=== PATIENT | male | born 1960 | race Caucasian/White ===

== ENCOUNTER 2021-05-01 15:34 | Emergency (ER) | payer SELFPAY ==
[~2021-05-01] VITALS: Ht 177.8 cm; Wt 109.0 kg
--- NOTE | 2021-05-01 15:50 | PHYS DOC ---
General Adult EDM: Chief Complaint: HYPOGLYCEMIA HPI: HPI: Patient is a 61-year-old male who presents with hypoglycemia. Patient states "I was walking on the street when I sat down on the side of the road". "I guess somebody called EMS". EMS states blood sugar was 52 on arrival. Patient is alert and oriented on arrival. Patient states he currently takes Metformin. Patient denies injury. (CHRISTAL LAWRENCE APRN) Review of Systems: Review of Systems: ROS At least 10 ROS systems have been reviewed and are negative except as documented in the HPI. General: Negative except as outlined in HPI above. Skin: Negative except as outlined in HPI above. HEENT: Negative except as outlined in HPI above. Neck: Negative except as outlined in HPI above. Respiratory: Negative except as outlined in HPI above.. Cardiovascular: Negative except as outlined in HPI above. Abdomen: Negative except as outlined in HPI above. : Negative except as outlined in HPI above. Back/MSK: Negative except as outlined in HPI above. Neuro: Negative except as outlined in HPI above. Psych: Negative except as outlined in HPI above. (CHRISTAL LAWRENCE APRN) Physical Exam: PE: Constitutional: Well developed, well nourished, no acute distress, non-toxic appearance. [] HENT: Normocephalic, atraumatic, bilateral external ears normal, oropharynx moist, no oral exudates, nose normal. [] Eyes: PERRLA, EOMI, conjunctiva normal, no discharge. [] Neck: Normal range of motion, no tenderness, supple, no stridor. [] Cardiovascular:Heart rate regular rhythm, no murmur [] Lungs & Thorax: Bilateral breath sounds clear to auscultation [] Abdomen: Bowel sounds normal, soft, no tenderness, no masses, no pulsatile masses. [] Skin: Warm, dry, no erythema, no rash. [] Back: No tenderness, no CVA tenderness. [] Extremities: No tenderness, no cyanosis, no clubbing, ROM intact, no edema. [] Neurologic: Alert and oriented X 3, normal motor function, normal sensory function, no focal deficits noted. [] Psychologic: Affect normal, judgement normal, mood normal. [] (CHRISTAL LAWRENCE APRN) EKG: EKG: [] (LAWRENCE,CHRISTAL IT TRAINEE) Radiology/Procedures: Radiology/Procedures: []STUDY: CT head and cervical spine without contrast INDICATION: Confusion. COMPARISON: None. TECHNIQUE: Axial CT imaging through the head and cervical spine without the use of intravenous contrast. Sagittal and coronal reformats were obtained. One or more of the following individualized dose reduction techniques were utilized for this examination: 1. Automated exposure control 2. Adjustment of the mA and/or kV according to patient size 3. Use of iterative reconstruction technique. FINDINGS: CT head: No acute intracranial hemorrhage. Quinones-white matter differentiation is maintained. No mass effect, midline shift or hydrocephalus. Intracranial calcific atherosclerosis involving both the internal carotid arteries and vertebral arteries. Normally aerated paranasal sinuses and mastoid air cells. Partially imaged odontogenic disease of the residual maxillary teeth. Intact calvarium. CT cervical spine: No acute cervical spine fracture or traumatic malalignment. Discogenic arthrosis greatest at C6-C7. Multilevel uncovertebral joint hypertrophy and varying extent of facet arthrosis ranging from mild to advanced. Disc osteophyte complex formation largest at C6-C7. No evidence for severe narrowing of the central canal. Mostly mild to moderate osseous narrowing of the neural foramina. Lytic defect with partially sclerotic margins involving a portion of the left occipital condyle. Heterogeneous mineralization within the defect. No large associated soft tissue mass with only some ill-defined soft tissue density extending anterior to the defect, image 23 series 4.. There may be the sequela of partial glossectomy. No lymph node is identified throughout the neck that meets pathologic criteria based on size. No significant abnormality of the thyroid. Carotid calcific atherosclerosis. IMPRESSION: CT head: 1. No acute intracranial hemorrhage or CT evidence for an acute cortical infarction. 2. Relatively extensive intracranial calcific atherosclerosis. There is also odontogenic disease involving the residual maxillary teeth. CT cervical spine: 1. No acute fracture or traumatic malalignment. 2. Lytic defect with partially sclerotic margins and a component of mineralization involving a portion of the left occipital condyle. There appears to be the sequela of partial glossectomy and it is possible that this represents a metastasis though an additional consideration would be a glomus jugulare paraganglioma. Recommend correlation with patient history, any outside imaging if available and skull base MRI if this is a new or previously uncharacterized finding. 3. Multifactorial degenerative changes of the cervical spine without evidence for severe narrowing of the central canal. Electronically signed by: CORAL REDMAN MD (05/01/2021 4:35 PM) [id number] * Study: XR CHEST 1V Indication: Dizziness. Comparison: None. Findings: Upper limits of normal size of the cardiomediastinal silhouette but accentuated by AP technique. The sussy are within normal limits. No lobar consolidation. Mild reticular densities bilaterally and likely component of left lower lung atelectasis. No layering effusion or pneumothorax. Impression: Faint bilateral reticular densities favored a combination of chronic lung changes and atelectasis. No confluent infiltrate to indicate pneumonia or radiographic manifestations of overt CHF/volume overload. Electronically signed by: CORAL REDMAN MD (05/01/2021 5:23 PM) [id number] (CHRISTAL LAWRENCE APRN) Heart Score: C/O Chest Pain: No Risk Factors: Risk Factors: DM, Current or recent (<one month) smoker, HTN, HLP, family history of CAD, obesity. Risk Scores: Score 0 - 3: 2.5% MACE over next 6 weeks - Discharge Home Score 4 - 6: 20.3% MACE over next 6 weeks - Admit for Clinical Observation Score 7 - 10: 72.7% MACE over next 6 weeks - Early Invasive Strategies (CHRISTAL LAWRENCE APRN) Course & Med Decision Making: Course & Med Decision Making Pertinent Labs and Imaging studies reviewed. (See chart for details) [] 59-year-old male who presents with hyperglycemia. Patient was given orange juice and a meal tray on arrival. Patient's blood sugar on arrival was 72. Patient states he is prediabetic and takes Metformin. Patient reports walking down the street and then sitting down once he got confused. EMS reported that his blood sugar was 52 on arrival. No injuries noted. Patient denies pain and has no complaints. Patient is alert and oriented and hemodynamically stable. After patient ate. Vitals were reassessed and blood pressure was 90/50. Patient informed RN he felt dizzy. EKG showed sinus rhythm, heart rate 95 bpm. Patient was given a liter bolus normal saline. CT head and cervical spine ordered to rule out intracranial bleeding or fracture. CT head and cervical spine negative for acute abnormality. All labs are unremarkable. Patient symptoms have improved after receiving fluids and eating. Advised patient to follow-up with PCP on Monday. Patient reports he understands discharge instructions. Patient given strict return precautions. Patient is alert and oriented, able to ambulate on his own and patient is hemod ynamically stable upon disposition. (CHRISTAL LAWRENCE APRN) Dragon Disclaimer: Dragon Disclaimer: This electronic medical record was generated, in whole or in part, using a voice recognition dictation system. (CHRISTAL LAWRENCE APRN) Attending Co-Sign The patient was seen and interviewed as well as examined at the bedside. The chart was reviewed. The case was discussed. Agree with the plan of care. (POONAM WYNNE DO) Departure Departure: Impression: Primary Impression: Hypoglycemia Additional Impression: Dizziness Disposition: 01 HOME / SELF CARE / HOMELESS Condition: STABLE Patient Instructions: Hypoglycemia (Low Blood Sugar) Additional Instructions: You are brought in by EMS for hypoglycemia. All your labs are unremarkable. You were given fluids along with a meal tray to help with dizziness and blood sugar. You need to call your PCP on Monday make a follow-up appointment. I am sending you with a copy of your CT results as well. Radiology suggested to have repeat imaging completed. EMERGENCY DEPARTMENT GENERAL DISCHARGE INSTRUCTIONS Thank you for coming to [facility] (ED) today and trusting us with you care. We trust that you had a positivie experience in our Emergency Department. If you wish to speak to the department management, you may call the director at [phone]. YOUR FOLLOW UP INSTRUCTIONS ARE FOLLOWS: 1. Do you have a private Doctor? If you do not have a private doctor, please ask for a resource list of physicians or clinics that may be able to assist you with follow up care. 2. The Emergency Physician has interpreted your x-rays. The X-Ray specialist will also review them. If there is a change in the findings, you will be notified in 48 hours when at all possible. 3. A lab test or culture has been done, your results will be reviewed and you will be notified if you need a change in treatment. ADDITIONAL INSTRUCTIONS AND INFORMATION: 1. Your care today has been supervised by a physician who is specially trained in emergency care. Many problems require more than one evaluation for a complete diagnosis and treatment. We recommend that you schedule your follow up appointment as recommended to ensure complete treatment of you illness or injury. If you are unable to obtain follow up care and continue to have a problem, or if your condition worsens, we recommend that you return to the ED. 2. We are not able to safely determine your condition over the phone nor are we able to give sound medical advice over the phone. For these safety reasons, if you call for medical advice we will ask you to come to the ED for further evaluation. 3. If you have any questions regarding these discharge instructions please call the ED at [phone]. SAFETY INFORMATION: In the interest of safety, wellness, and injury prevention; we encourage you to wear your sealbelt, if you smoke; quite smoking, and we encourage family to use a protective helmet for bicycling and other sporting events that present an increased risk for head injury. IF YOUR SYMPTOMS WORSEN OR NEW SYMPTOMS DEVELOP, OR YOU HAVE CONCERNS ABOUT YOUR CONDITION; OR IF YOUR CONDITION WORSENS WHILE YOU ARE WAITING FOR YOUR FOLLOW UP APPOINTMENT; EITHER CONTACT YOUR PRIMARY CARE DOCTOR, THE PHYSICIAN WHOSE NAME AND NUMBER YOU WERE GIVEN, OR RETURN TO THE ED IMMEDIATELY. CHRISTAL LAWRENCE APRN May 01, 2021 15:50 POONAM WYNNE DO May 03, 2021 06:32
[2021-05-01] MEDS: IV NORMAL SALINE 1,000ML 1,000 ML IV ONE (16:30)
--- NOTE | 2021-05-01 16:38 | RAD ---
STUDY: CT head and cervical spine without contrast INDICATION: Confusion. COMPARISON: None. TECHNIQUE: Axial CT imaging through the head and cervical spine without the use of intravenous contra st. Sagittal and coronal reformats were obtained. One or more of the following individualized dose reduction techniques were utilized for this examinat ion: 1. Automated exposure control 2. Adjustment of the mA and/or kV according to patient size 3. Use of iterative reconstruction technique. FINDINGS: CT head: No acute intracranial hemorrhage. Quinones-white matter differentiation is maintained. No mass effect, mi dline shift or hydrocephalus. Intracranial calcific atherosclerosis involving both the internal carotid arteries and vertebral [place]. Normally aerated paranasal sinuses and mastoid air cells. Partially imaged odontogenic disease of the residual maxillary teeth. Intact calvarium. CT cervical spine: No acute cervical spine fracture or traumatic malalignment. Discogenic arthrosis greatest at C6-C7. M ultilevel uncovertebral joint hypertrophy and varying extent of facet arthrosis ranging from mild to advanced. Disc osteophyte complex formation largest at C6-C7. No evidence for severe narrowing of the central canal. Mostly mild to moderate osseous narrowing of the neural foramina. Lytic defect with partially sclerotic margins involving a portion of the left occipital condyle. Hete rogeneous mineralization within the defect. No large associated soft tissue mass with only some ill-d efined soft tissue density extending anterior to the defect, image 23 series 4.. There may be the seq uela of partial glossectomy. No lymph node is identified throughout the neck that meets pathologic cr iteria based on size. No significant abnormality of the thyroid. Carotid calcific atherosclerosis. IMPRESSION: CT head: 1. No acute intracranial hemorrhage or CT evidence for an acute cortical infarction. 2. Relatively extensive intracranial calcific atherosclerosis. There is also odontogenic disease inv olving the residual maxillary teeth. CT cervical spine: 1. No acute fracture or traumatic malalignment. 2. Lytic defect with partially sclerotic margins and a component of mineralization involving a porti on of the left occipital condyle. There appears to be the sequela of partial glossectomy and it is po ssible that this represents a metastasis though an additional consideration would be a glomus jugular e paraganglioma. Recommend correlation with patient history, any outside imaging if available and [facility] base MRI if this is a new or previously uncharacterized finding. 3. Multifactorial degenerative changes of the cervical spine without evidence for severe narrowing o f the central canal. Electronically signed by: CORAL REDMAN MD (05/01/2021 4:35 PM) [id number]
[2021-05-01 17:18] LABS: BASO % 0 % (0-3); EOS # 0.1 x10^3/uL (0.0-0.7); EOS % 2 % (0-3); HEMATOCRIT 41.8 % (39.0-53.0); LYMPH # 1.7 x10^3/uL (1.0-4.8); LYMPH % 20 % (24-48); MEAN CORPUSCULAR HEMOGLOBIN 31 pg (25-35); MEAN CORPUSCULAR HGB CONC 33 g/dL (31-37); MEAN CORPUSCULAR VOLUME 94 fL (79-100); MONO % 12 % (0-9); NEUT # 5.5 x10^3uL (1.8-7.7); NEUT % 66 % (31-73); PLATELET COUNT 238 x10^3/uL (140-400); RED BLOOD COUNT 4.44 x10^6/uL (4.30-5.70); RED CELL DISTRIBUTION WIDTH 14.9 % (11.5-14.5); WHITE BLOOD COUNT 8.3 x10^3/uL (4.0-11.0)
--- NOTE | 2021-05-01 17:26 | RAD ---
Study: XR CHEST 1V Indication: Dizziness. Comparison: None. Findings: Upper limits of normal size of the cardiomediastinal silhouette but accentuated by AP technique. The sussy are within normal limits. No lobar consolidation. Mild reticular densities bilaterally and likel y component of left lower lung atelectasis. No layering effusion or pneumothorax. Impression: Faint bilateral reticular densities favored a combination of chronic lung changes and atelectasis. No confluent infiltrate to indicate pneumonia or radiographic manifestations of overt CHF/volume overlo ad. Electronically signed by: CORAL REDMAN MD (05/01/2021 5:23 PM) [id number]
[2021-05-01 17:27] LABS: CALCIUM 9.3 mg/dL (8.5-10.1); GFR 75.7; POTASSIUM 4.7 mmol/L (3.5-5.1)
[2021-05-01 17:56] VITALS: BP 108/63
--- NOTE | 2021-05-01 19:51 | EKG ---
[address] [address] Test Date: 2021-05-01 Test Time: 16:33:09 Pat Name: MAGAN MARCUS Department: Room: Gender: M [employer]: : [id number] Requested By: CHRISTAL LAWRENCE Order Number: [id number] Reading MD: Enrrique Marcelo Measurements Intervals [place] Rate: 95 P: 28 MT: 140 QRS: 52 QRSD: 84 T: 73 QT: 334 QTc: 423 Interpretive Statements SINUS RHYTHM NORMAL ECG RI6.02 No previous ECG available for comparison Electronically Signed On 05-06-2021 12:51:18 CDT by Enrrique Marcelo
== END 2021-05-01 18:00 | disposition home or self-care (01) ==
LOC: ER 15:34
DX: E16.2 Hypoglycemia, unspecified (principal); R42 Dizziness and giddiness
CPT/HCPCS: 36415; 70450; 71045; 72125; 80048; 82947; 84484; 85025; 93005; 96360; 99285; J7030

== ENCOUNTER 2021-08-12 12:01 | Emergency (ER) | payer OTHER ==
[~2021-08-12] VITALS: Ht 175.3 cm; Wt 108.6 kg
--- NOTE | 2021-08-12 12:26 | RAD ---
EXAM: Chest, single view. HISTORY: Covid 19. COMPARISON: 05/01/2021 FINDINGS: And frontal view of the chest is obtained. There is diffuse lower lobe predominant intersti tial infiltrate with small pleural effusions. There is mild cardia megaly. There is no pneumothorax. IMPRESSION: Increase in diffuse lower lobe predominant interstitial infiltrate and small pleural effu sions. Electronically signed by: Dennise Díaz MD (08/12/2021 12:23 PM) [id number]
[2021-08-12] MEDS ORDERED: ENOXAPARIN ** NOTE DOSE ** SYRINGE SQ ONE (13:45)
[2021-08-12] MEDS ORDERED: DEXAMETHASONE SOD PHOS 10 MG/ML VIAL. IV ONE (13:45)
--- NOTE | 2021-08-12 14:02 | PHYS DOC ---
Past History Additional Past Medical Histor: TBI Past Surgical History: Other Additional Past Surgical Histo: ABD HERNIA REPAIRS Alcohol Use: Occasionally General Adult EDM: Chief Complaint: SHORTNESS OF BREATH HPI: HPI: 61-year-old male presents via EMS with shortness of breath. Patient had a home COVID test 10 days ago that was positive. He has been feeling little more short of breath and worse overall in the last few days. He has never been on oxygen in the past. No significant lung history. He denies fever or chills. Review of Systems: Review of Systems: Constitutional: Denies fever or chills Eyes: Denies change in visual acuity HENT: Denies nasal congestion or sore throat Respiratory: Cough with shortness of breath Cardiovascular: Denies chest pain or edema GI: Denies abdominal pain, nausea, vomiting, bloody stools or diarrhea : Denies dysuria Musculoskeletal: Denies back pain or joint pain Integument: Denies rash Neurologic: Denies headache, focal weakness or sensory changes Endocrine: Denies polyuria or polydipsia Lymphatic: Denies swollen glands Psychiatric: Denies depression or anxiety Current Medications: Current Meds: Current Medications Medications (Trade) Dose Ordered Sig/Garima Start Time Stop Time Status Last Admin Dose Admin Dexamethasone Sodium Phosphate (Decadron) 10 mg 1X ONCE 08/12/21 13:45 08/12/21 13:46 DC Enoxaparin Sodium (Lovenox 100mg Syringe) 100 mg 1X ONCE 08/12/21 13:45 08/12/21 13:46 DC Allergies: Allergies: Allergies Coded Allergies Type Severity Reaction Last Updated Verified codeine Allergy Unknown 08/12/21 Yes Physical Exam: PE: Constitutional: Well developed, well nourished, mild acute distress, non-toxic appearance. [] HENT: Normocephalic, atraumatic, bilateral external ears normal, oropharynx moist, no oral exudates, nose normal. [] Eyes: PERRLA, EOMI, conjunctiva normal, no discharge. [] Neck: Normal range of motion, no tenderness, supple, no stridor. [] Cardiovascular: Heart rate 120, regular rhythm, no murmur [] Lungs & Thorax: Bilateral breath sounds significantly diminished [] Abdomen: Bowel sounds normal, soft, no tenderness, no masses, no pulsatile masses. [] Skin: Warm, dry, no erythema, no rash. [] Back: No tenderness, no CVA tenderness. [] Extremities: No tenderness, no cyanosis, no clubbing, ROM intact, no edema. [] Neurologic: Alert and oriented X 3, normal motor function, normal sensory function, no focal deficits noted. [] Psychologic: Affect normal, judgement normal, mood normal. [] Current Patient Data: Vital Signs: Vital Signs Date Time Temp Pulse Resp B/P (MAP) Pulse Ox O2 Delivery O2 Flow Rate FiO2 08/12/21 13:25 114 23 100/37 (58) 91 High Flow Nasal Cannula 10.0 08/12/21 13:01 98.2 EKG: EKG: [] Radiology/Procedures: Radiology/Procedures: [] Impressions: ADDENDUM #1 Addendum: Gallstones are apparent within the gallbladder. No gallbladder wall thickening or distention is seen. Electronically signed by: Fernanda Arambula MD (08/12/2021 3:44 PM) [id number] ORIGINAL REPORT CTA OF THE CHEST WITH AND WITHOUT CONTRAST Clinical indications: Shortness of breath. Covid positive. Technique: Noncontrast axial localizer was performed. After IV infusion of 75 cc of Omnipaque 350, helical CT scanning of the chest was performed using the CTA pulmonary embolism protocol. Coronal and sagittal MIP reconstructions were generated. PQRS compliance Statement One or more of the following individualized dose reduction techniques were utilized for this study: 1. Automated exposure control 2. Adjustment of the mA and/or kV according to patient size 3. Use of iterative reconstruction technique Comparison: No previous chest CT available. Findings: No pulmonary embolism is evident. No focal aneurysmal dilatation or dissection of thoracic aorta is seen. Reactive mediastinal and bilateral hilar lymphadenopathy is seen. Calcified atheromatous disease of the coronary arteries is seen. Heart size is normal excluding the pericardial fat. No pericardial effusion is seen. Diffuse confluent groundglass lung infiltrates are seen with a more peripheral location. There are associated air bronchograms. Proximal bronchial tree is patent. No adrenal mass is evident. No lytic process is seen. IMPRESSION: No pulmonary embolism. Diffuse confluent bilateral groundglass lung infiltrates are seen with a more peripheral location. This may be seen with Covid 19 pneumonia given the patient's history. Electronically signed by: Fernanda Arambula MD (08/12/2021 3:07 PM) [id number] DICTATED AND SIGNED BY: FERNANDA ARAMBULA MD DATE: 08/12/21 1543 CC: POONAM WYNNE DO; [facility] ~ CTA OF THE CHEST WITH AND WITHOUT CONTRAST Clinical indications: Shortness of breath. Covid positive. Technique: Noncontrast axial localizer was performed. After IV infusion of 75 cc of Omnipaque 350, helical CT scanning of the chest was performed using the CTA pulmonary embolism protocol. Coronal and sagittal MIP reconstructions were generated. PQRS compliance Statement One or more of the following individualized dose reduction techniques were utilized for this study: 1. Automated exposure control 2. Adjustment of the mA and/or kV according to patient size 3. Use of iterative reconstruction technique Comparison: No previous chest CT available. Findings: No pulmonary embolism is evident. No focal aneurysmal dilatation or dissection of thoracic aorta is seen. Reactive mediastinal and bilateral hilar lymphadenopathy is seen. Calcified atheromatous disease of the coronary arteries is seen. Heart size is normal excluding the pericardial fat. No pericardial effusion is seen. Diffuse confluent groundglass lung infiltrates are seen with a more peripheral location. There are associated air bronchograms. Proximal bronchial tree is patent. No adrenal mass is evident. No lytic process is seen. IMPRESSION: No pulmonary embolism. Diffuse confluent bilateral groundglass lung infiltrates are seen with a more peripheral location. This may be seen with Covid 19 pneumonia given the patient's history. Electronically signed by: Fernanda Arambula MD (08/12/2021 3:07 PM) [id number] DICTATED AND SIGNED BY: FERNANDA ARAMBULA MD DATE: 08/12/21 1458 CC: POONAM WYNNE DO; [facility] ~MTH0 0 Heart Score: C/O Chest Pain: N/A Risk Factors: Risk Factors: DM, Current or recent (<one month) smoker, HTN, HLP, family history of CAD, obesity. Risk Scores: Score 0 - 3: 2.5% MACE over next 6 weeks - Discharge Home Score 4 - 6: 20.3% MACE over next 6 weeks - Admit for Clinical Observation Score 7 - 10: 72.7% MACE over next 6 weeks - Early Invasive Strategies Course & Med Decision Making: Course & Med Decision Making Pertinent Labs and Imaging studies reviewed. (See chart for details) The patient has an elevated white count. He has multiple abnormal labs. See labs for more details. Elevated lactic acid and we will give the patient fluids. He has COVID-19. His CTA does not show pulmonary embolus but does show bilateral COVID-pneumonia. I will treat him with Rocephin, azithromycin, and Decadron. The patient is requiring oxygen therapy. He has never been on oxygen in the past. I will admit him to the hospital. I spoke with the hospitalist, Dr. Gaming and he has accepted the patient for admission. [] Dragon Disclaimer: Dragon Disclaimer: This electronic medical record was generated, in whole or in part, using a voice recognition dictation system. Departure Departure: Impression: Primary Impression: Pneumonia due to COVID-19 virus Disposition: ADMITTED INPATIENT Admitting Physician: Yazan Gaming Condition: GUARDED Referrals: AIDE DUMONT (PCP) POONAM WYNNE DO Aug 12, 2021 14:02
[2021-08-12 14:03] LABS: BASO % 0 % (0-3); EOS % 0 % (0-3); HEMATOCRIT 40.7 % (39.0-53.0); HEMOGLOBIN 13.3 g/dL (13.0-17.5); LYMPH # 0.7 x10^3/uL (1.0-4.8); LYMPH % 3 % (24-48); MEAN CORPUSCULAR HEMOGLOBIN 30 pg (25-35); MEAN CORPUSCULAR HGB CONC 33 g/dL (31-37); MEAN CORPUSCULAR VOLUME 92 fL (79-100); MONO # 0.5 x10^3/uL (0.0-1.1); MONO % 2 % (0-9); NEUT # 20.3 x10^3uL (1.8-7.7); NEUT % 94 % (31-73); PLATELET COUNT 203 x10^3/uL (140-400); RED BLOOD COUNT 4.42 x10^6/uL (4.30-5.70); RED CELL DISTRIBUTION WIDTH 15.3 % (11.5-14.5); WHITE BLOOD COUNT 21.6 x10^3/uL (4.0-11.0)
[2021-08-12 14:11] LABS: CALCIUM 8.4 mg/dL (8.5-10.1); CREATININE 1.5 mg/dL (0.7-1.3); GFR 47.4; POTASSIUM 4.2 mmol/L (3.5-5.1)
[2021-08-12 14:16] LABS: INFLUENZA A PATIENT NEGATIVE (NEGATIVE); INFLUENZA B PATIENT NEGATIVE (NEGATIVE)
[2021-08-12 14:17] LABS: ALBUMIN 2.9 g/dL (3.4-5.0); ALBUMIN/GLOBULIN RATIO 0.7 (1.0-1.7); TOTAL BILIRUBIN 0.5 mg/dL (0.2-1.0); TOTAL PROTEIN 6.9 g/dL (6.4-8.2)
[2021-08-12] MEDS ORDERED: IOHEXOL 350 MG/ML 100 ML VIAL. ONE (14:23)
[2021-08-12] MEDS ORDERED: IOHEXOL 350 MG/ML 100 ML VIAL. IV ONE (14:30)
[2021-08-12] MEDS ORDERED: AZITHROMYCIN 250 MG TABLET. PO ONE (14:30)
[2021-08-12] MEDS ORDERED: IV NORMAL SALINE 1,000ML 1,000 ML IV ONE (14:30)
[2021-08-12] MEDS ORDERED: cefTRIAXone SODIUM 1 GM VIAL ONE (14:59)
[2021-08-12] MEDS ORDERED: IV NORMAL SALINE 50ML 50 ML ONE (14:59)
--- NOTE | 2021-08-12 15:10 | RAD ---
CTA OF THE CHEST WITH AND WITHOUT CONTRAST Clinical indications: Shortness of breath. Covid positive. Technique: Noncontrast axial localizer was performed. After IV infusion of 75 cc of Omnipaque 350, he lical CT scanning of the chest was performed using the CTA pulmonary embolism protocol. Coronal and s agittal MIP reconstructions were generated. PQRS compliance Statement One or more of the following individualized dose reduction techniques were utilized for this study: 1. Automated exposure control 2. Adjustment of the mA and/or kV according to patient size 3. Use of iterative reconstruction technique Comparison: No previous chest CT available. Findings: No pulmonary embolism is evident. No focal aneurysmal dilatation or dissection of thoracic aorta is seen. Reactive mediastinal and bilateral hilar lymphadenopathy is seen. Calcified atheromato us disease of the coronary arteries is seen. Heart size is normal excluding the pericardial fat. No p ericardial effusion is seen. Diffuse confluent groundglass lung infiltrates are seen with a more kala pheral location. There are associated air bronchograms. Proximal bronchial tree is patent. No adrenal mass is evident. No lytic process is seen. IMPRESSION: No pulmonary embolism. Diffuse confluent bilateral groundglass lung infiltrates are seen with a more peripheral location. Th is may be seen with Covid 19 pneumonia given the patient's history. Electronically signed by: Cristofer Arambula MD (08/12/2021 3:07 PM) [id number]
[2021-08-12 16:07] LABS: % BANDS 13 % (0-9); % LYMPHS 3 % (24-48); % MONOS 2 % (0-10); % SEGS 82 % (35-66)
[2021-08-12 16:08] LABS: PLT ESTIMATE ADEQUATE (ADEQUATE)
[2021-08-12] MEDS ORDERED: ACETAMINOPHEN 325 MG TABLET PO PRN (16:15)
[2021-08-12] MEDS ORDERED: ONDANSETRON PF 4 MG/2 ML VIAL. IVP PRN (16:15)
[2021-08-12] MEDS ORDERED: DEXTROSE 50% 25 GM / 50ML DISP.SYRIN. IV PRN (18:15)
[2021-08-13] MEDS: DEXAMETHASONE SOD PHOS 10 MG/ML VIAL. IV SCH ×4 (00:11→18:00)
--- NOTE | 2021-08-13 06:32 | EKG ---
[address] [address] Test Date: 2021-08-12 Test Time: 13:46:05 Pat Name: MAGAN MARCUS Department: Room: ED HOLD 06 Gender: M [employer]visor [employer] Department: [facility]OTHY : 1960 Requested By: POONAM WYNNE Order Number: [id number] Reading MD: Terrance Vásquez Measurements Intervals [place] Rate: 120 P: 21 PA: 124 QRS: 46 QRSD: 84 T: 55 QT: 298 QTc: 426 Interpretive Statements SINUS TACHYCARDIA OTHERWISE NORMAL ECG RI6.02 Compared to ECG 05/01/2021 16:33:09 Sinus rhythm no longer present Electronically Signed On 08-14-2021 16:06:51 [employer]EE[employer] REPRESENT[employer]IVE by Terrance Vásquez
[2021-08-13] MEDS: INSULIN LISPRO 300 UNITS/3 ML VIAL. SQ SCH ×3 (08:57→17:00)
[2021-08-13] MEDS ORDERED: AZITHROMYCIN 250 MG TABLET. PO SCH (09:00)
[2021-08-13] MEDS ORDERED: SPIRONOLACTONE 25 MG TABLET PO SCH (09:00)
[2021-08-13] MEDS ORDERED: METOPROLOL SUCC 24HR ER 50 MG TAB.ER.24H. PO SCH (09:00)
[2021-08-13] MEDS ORDERED: ATORVASTATIN CALCIUM 20 MG TABLET PO SCH (09:00)
[2021-08-13] MEDS ORDERED: LOSARTAN 50 MG TABLET. PO SCH (09:00)
[2021-08-13] MEDS ORDERED: IV NORMAL SALINE 50ML 50 ML ONE (09:13)
[2021-08-13] MEDS ORDERED: cefTRIAXone SODIUM 1 GM VIAL ONE (09:14)
[2021-08-13] MEDS ORDERED: CHOLECALCIFEROL (VITAMIN D3) 50,000 UNIT CAPSULE PO STA (10:15)
[2021-08-13] MEDS ORDERED: REMDESIVIR LOAD in IV NORMAL SALINE 250ML TV IV ONE (10:30)
[2021-08-13] MEDS ORDERED: IV DEXTROSE 5% - 0.9 % NACL 1,000 ML IV SCH (12:30)
[2021-08-13] MEDS ORDERED: ENOXAPARIN 40 MG/0.4 ML SYRINGE. SQ SCH (14:00)
[2021-08-13 18:51] VITALS: BP 164/85
[2021-08-14] MEDS ORDERED: ZINC SULFATE 220 MG CAPSULE. PO SCH (09:00)
[2021-08-14] MEDS ORDERED: REMDESIVIR 100mg in NORMAL SALINE 250ML X 9 DAYS IV SCH (10:30)
[2021-08-14] MEDS ORDERED: REMDESIVIR 100mg in NORMAL SALINE 250ML X 4 DAYS IV SCH (10:30)
== END 2021-08-13 18:40 | disposition admitted as inpatient to this hospital (09) ==
LOC: ER 12:01 → UNDOADMIN 16:13 → ER HOLD 16:13
DX: U07.1 COVID-19 (principal); J12.82 Pneumonia due to coronavirus disease 2019; Z87.820 Personal history of traumatic brain injury; Z88.5 Allergy status to narcotic agent
CPT/HCPCS: 36415; 71045; 71275; 80053; 82803; 82947; 83605; 84484; 85007; 85025; 87040; 87428; 93005; 94660; 96361; 96365; 96366; 96372; 96375; 96376; 99285; J0696; J1100; J1650; J1815; J7030; J7042; J7050; Q9967